=== PATIENT | male | born 1990 | race Caucasian/White ===

== ENCOUNTER 2016-12-03 09:38 | Emergency (ER) | payer BC, OTHER ==
[~2016-12-03] VITALS: Wt 63.6 kg
[~2016-12-03 09:38] MED LIST: IBUP-727 PO
[2016-12-03] MEDS ORDERED: KETOROLAC 30 MG INJ IV STA (09:51)
[2016-12-03] MEDS ORDERED: ONDANSETRON 4 MG INJ IV STA (09:51)
[2016-12-03] MEDS ORDERED: HYDROmorphONE 1 MG/ML SYG IV STA ×2 (10:09→11:23)
[2016-12-03 10:18] LABS: ADD SCAN DIFF NO
[2016-12-03 10:22] LABS: BASOPHIL # 0.1 10^3/ul (0.0-0.1); BASOPHILS % 0.3 % (0.0-2.0); EOSINOPHILS # 0.1 10^3/ul (0.0-0.5); EOSINOPHILS % 0.9 % (0.0-7.0); HEMATOCRIT 47.6 % (42.0-52.0); HEMOGLOBIN 15.2 g/dl (14.0-18.0); LYMPHOCYTES # 1.9 10^3/ul (0.8-2.9); LYMPHOCYTES % 12.4 % (15.0-51.0); MEAN CORPUSCULAR HEMOGLOBIN 25.6 pg (29.0-33.0); MEAN CORPUSCULAR HGB CONC 31.9 g/dl (32.0-37.0); MEAN CORPUSCULAR VOLUME 80.1 fl (82.0-101.0); MEAN PLATELET VOLUME 10.8 fl (7.4-10.4); MONOCYTE # 0.7 10^3/ul (0.3-0.9); MONOCYTES % 4.5 % (0.0-11.0); NEUTROPHIL # 12.6 10^3/ul (1.6-7.5); NEUTROPHILS % 81.6 % (39.0-77.0); PLATELET COUNT 290 10^3/UL (140-415); RED BLOOD COUNT 5.94 10^6/ul (4.70-6.10); RED CELL DISTRIBUTION WIDTH 12.3 % (11.5-14.5); WHITE BLOOD COUNT 15.5 10^3/ul (4.8-10.8)
[2016-12-03 10:38] LABS: ALBUMIN 4.7 g/dl (3.3-4.9)
[2016-12-03 10:39] LABS: POTASSIUM 4.3 mmol/L (3.5-5.1)
[2016-12-03 10:41] LABS: ALBUMIN/GLOBULIN RATIO 1.62; BILIRUBIN,INDIRECT 0.4 mg/dl (0-1.1); BILIRUBIN,TOTAL 0.4 mg/dl (0.2-1.3); CREATININE 0.93 mg/dl (0.61-1.24); TOTAL PROTEIN 7.6 g/dl (6.1-8.1)
[2016-12-03 10:42] LABS: CALCIUM 9.6 mg/dl (8.4-10.2)
[2016-12-03 11:41] VITALS: BP 128/92; PULSE 88; RESP 18
[2016-12-03 12:08] LABS: ADD UMIC YES; URINE BILIRUBIN (Dip) 2+ (NEGATIVE); URINE BLOOD (Dip) 3+ (NEGATIVE); URINE COLOR DK. RED (YELLOW); URINE GLUCOSE (Dip) NEGATIVE (NEGATIVE); URINE KETONES (Dip) 15 (NEGATIVE); URINE LEUKOCYTE ESTERASE (Dip) NEGATIVE (NEGATIVE); URINE NITRITE (Dip) POSITIVE (NEGATIVE); URINE TOTAL PROTEIN (Dip) 2+ (NEGATIVE); URINE UROBILINOGEN (Dip) 1.0 E.U./dL (0.1-1.0)
[2016-12-03 12:25] LABS: BACTERIA,URINE MANY; URINE RBCS >200 /HPF (0)
[2016-12-03 12:26] LABS: ICTOTEST NEGATIVE (NEGATIVE)
[2016-12-03] MEDS ORDERED: CIPR500T4 PO (13:22)
[2016-12-03] MEDS ORDERED: IBUP-1542 PO (13:22)
[2016-12-03] MEDS ORDERED: TRAM50TA2 PO (13:22)
--- NOTE | 2016-12-03 13:26 | ERA ---
ER Documentation Chief Complaint Date/Time DATE: 12/03/16 TIME: 943 Chief Complaint left flank pain for 1 week getting worse today. with urinary retention HPI 26-year-old male brought to the emergency department for his family for evaluation of left flank pain. Patient states that over the last week or so, he has had a severe, colicky left flank pain radiating towards his groin. He then began feeling as if he could not pass urine today. The pain became more severe. It rates from a 5-9 out of 10. Patient reports noted hematuria today. He had no fevers or chills or vomiting. He reports no diarrhea. ROS All systems reviewed and are negative except as per history of present illness. Medications Home Meds Active Scripts Ciprofloxacin Hcl* (Ciprofloxacin Hcl*) 500 Mg Tablet, 500 MG PO BID for 5 Days , TAB Prov:REX JOSUE 12/03/16 Ibuprofen* (Motrin*) 600 Mg Tab, 600 MG PO Q6, #30 TAB Prov:REX JOSUE 12/03/16 Tramadol HCl (Tramadol HCl) 50 Mg Tablet, 50 MG PO Q4 Y for PAIN, #20 TAB Prov:REX JOSUE 12/03/16 Discontinued Reported Medications Ibuprofen (Motrin) 600 Mg Tablet, 600 MG PO QID 11/20/11 Allergies Allergies: Coded Allergies: No Known Allergy (Unverified , 11/20/11) PMhx/Soc History of Surgery: No Anesthesia Reaction: No Hx Neurological Disorder: No Hx Respiratory Disorders: No Hx Cardiac Disorders: No Hx Psychiatric Problems: No Hx Miscellaneous Medical Probl: Yes (KIDNEY STONES ) Hx Alcohol Use: Yes Hx Substance Use: No Hx Tobacco Use: Yes (1 PPD) Smoking Status: Current every day smoker FmHx Noncontributory for chief complaint Physical Exam Vitals Vital Signs Date Time Temp Pulse Resp B/P Pulse Ox O2 Delivery O2 Flow Rate FiO2 12/03/16 11:41 88 18 128/92 99 Room Air 12/03/16 09:39 97.9 58 21 148/98 99 Physical Exam GENERAL: The patient is well developed and appropriate for usual state of health in no apparent distress HEENT: Pupils equal, round, and reactive to light. EOMI. There is no scleral icterus. NECK: C-spine is soft and supple, there is no meningismus. There is no cervical lymphadenopathy. LUNGS: Clear to auscultation bilaterally. There are no rales, wheezes or rhonchi. HEART: Regular rate and rhythm, no murmurs, clicks, rubs or gallops. ABDOMEN: Soft, non-tender, non-distended. There are bowel sounds in all four quadrants. No rebound or guarding. EXTREMITIES: There is no peripheral cyanosis or edema. No focal swelling or erythema. NEURO: The patient moves all four extremities with 5/5 strength. Cranial nerves II - XII are intact. Normal gait. Alert and oriented SKIN: There is no apparent rash or petechiae. HEME/LYMPHATIC: There is no evidence of excessive bruising or lymphedema. PSYCHIATRIC: The patient does not appear anxious or depressed. Result Diagram: 12/03/1650 12/03/1650 Results 24 hrs Laboratory Tests Test 12/03/16 09:50 12/03/16 11:19 White Blood Count 15.510^3/ul Red Blood Count 5.9410^6/ul Hemoglobin 15.2g/dl Hematocrit 47.6% Mean Corpuscular Volume 80.1fl Mean Corpuscular Hemoglobin 25.6pg Mean Corpuscular Hemoglobin Concent 31.9g/dl Red Cell Distribution Width 12.3% Platelet Count 96078^3/UL Mean Platelet Volume 10.8fl Neutrophils % 81.6% Lymphocytes % 12.4% Monocytes % 4.5% Eosinophils % 0.9% Basophils % 0.3% Nucleated Red Blood Cells % 0.0/100WBC Neutrophils # 12.610^3/ul Lymphocytes # 1.910^3/ul Monocytes # 0.710^3/ul Eosinophils # 0.110^3/ul Basophils # 0.110^3/ul Nucleated Red Blood Cells # 0.010^3/ul Sodium Level 140mmol/L Potassium Level 4.3mmol/L Chloride Level 101mmol/L Carbon Dioxide Level 27mmol/L Anion Gap 16 Blood Urea Nitrogen 15mg/dl Creatinine 0.93mg/dl Glucose Level 106mg/dl Calcium Level 9.6mg/dl Total Bilirubin 0.4mg/dl Direct Bilirubin 0.00mg/dl Indirect Bilirubin 0.4mg/dl Aspartate Amino Transf (AST/SGOT) 21IU/L Alanine Aminotransferase (ALT/SGPT) 31IU/L Alkaline Phosphatase 70IU/L Total Protein 7.6g/dl Albumin 4.7g/dl Globulin 2.90g/dl Albumin/Globulin Ratio 1.62 Lipase 129U/L Urine Color DK. RED Urine Clarity CLEAR Urine pH 5.5 Urine Specific Crucible >=1.030 Urine Ketones 15 Urine Nitrite POSITIVE Urine Bilirubin 2+ Urine Ictotest NEGATIVE Urine Urobilinogen 1.0 E.U./dL Urine Leukocyte Esterase NEGATIVE Urine Microscopic RBC >200/HPF Urine Microscopic WBC 10-25/HPF Urine Epithelial Cells FEW Urine Calcium Oxalate Crystals FEW Urine Bacteria MANY Urine Hemoglobin 3+ Urine Glucose NEGATIVE% Urine Total Protein 2+ Current Medications Medications (Trade) Dose Ordered Sig/Michael Route PRN Reason Start Time Stop Time Status Last Admin Dose Admin Ketorolac Tromethamine (Toradol) 30 mg ONCE STAT IV 12/03/16 09:51 12/03/16 09:52 DC 12/03/16 09:59 Ondansetron HCl (Zofran Inj) 4 mg ONCE STAT IV 12/03/16 09:51 12/03/16 09:52 DC 12/03/16 09:58 Hydromorphone HCl (Dilaudid) 1 mg ONCE STAT IV 12/03/16 10:09 12/03/16 10:10 DC 12/03/16 10:13 Hydromorphone HCl (Dilaudid) 0.5 mg ONCE STAT IV 12/03/16 11:23 12/03/16 11:24 DC 12/03/16 11:41 Procedures/MDM Patient was taken to a room, seen and evaluated. Comfort measures were initiated. Diagnostic tests were ordered and reviewed. RADIOLOGY: reviewed with the radiologist REEVALUATION: Patient's pain was able to be controlled. Patient was then noted to feel as if he passed the kidney stone and then had complete resolution of his discomfort. Serial examinations of his abdomen remained benign prior to discharge. MEDICAL DECISION MAKIN-year-old male with a history of kidney stones presents the emergency department with left flank pain. Differential diagnosis entertained was broad and potential high acuity but ultimately his evaluation seems to be reflective of a repeat kidney stone. Ultrasound also demonstrates kidney stone disease with mild hydro-. He has evidence of a mild secondary infection, but does not appear to be septic. At this point, given the resolution of his symptoms and is otherwise lack of comorbid conditions, patient appears to be appropriate for outpatient care. Departure Diagnosis: Primary Impression: Kidney stone Additional Impression: Urinary tract infection Condition: Stable Patient Instructions: Kidney Stone, Passed Additional Instructions: Do NOT drive while taking the medication. Return for any problems or concerns REX JOSUE December 03, 2016 13:26
--- NOTE | 2016-12-03 13:28 | RADRPT ---
PROCEDURE: Complete abdominal ultrasound. CLINICAL INDICATION: Flank pain, abdominal pain TECHNIQUE: Gordillo scale and color doppler ultrasound images of the abdomen. COMPARISON: None FINDINGS: Pancreas: Visualized portions appear of normal echogenicity, no focal lesions. Liver: Morphology: Normal in size and contour. Echogenicity: Normal. Focal lesions: None. Main portal vein: Patent with hepatopetal flow. Biliary System: Normal appearing gallbladder wall. No gallstones seen. No intrahepatic biliary dilatation. Common bile duct diameter: 2.8 mm Kidneys: Right length: 10.4 cm. Right renal cortical thickness is preserved. Left length: 11.0 cm. Left renal cortical thickness is preserved. Normal echogenicity. Mild left-sided hydronephrosis. 1.6 cm right renal calculus. Possible 0.7 cm left renal calculus. No focal renal lesions. Spleen: Normal in size, no focal lesions. No free fluid identified. Normal caliber of the partially visualized aorta. IMPRESSION: 1.6 cm nonobstructive right renal calculus. Possible 0.7 cm left renal calculus. Mild left-sided hydronephrosis. CT scan of the abdomen and pelvis recommended for further evaluation. RPTAT: AADD .Milo Crouch MD, MD Date Time Electronically viewed and signed by .Milo Crouch MD, on 12/03/2016 13:28 .B/
== END 2016-12-03 13:42 | disposition home or self-care (01) ==
LOC: E/R 09:38
DX: N20.0 Calculus of kidney (principal); N39.0 Urinary tract infection, site not specified; F17.210 Nicotine dependence, cigarettes, uncomplicated
CPT/HCPCS: 76700; 80053; 81001; 83690; 85025; J1170; J1885; J2405; 36415; 96374; 96375; 96376

== ENCOUNTER → 2016-12-21 | Outpatient (CLI) | payer BC ==
[~2016-12-21] MED LIST changes: +BARIUM SULFATE 135 ML (E-Z HD) PO ONE; +CIPR500T4 PO; +IBUP-1542 PO; -IBUP-727 PO; +TRAM50TA2 PO
--- NOTE | 2016-12-21 18:15 | RADRPT ---
PROCEDURE: XR Abdomen. CLINICAL INDICATION: History of renal calculi. TECHNIQUE: AP supine abdomen x-ray. COMPARISON: Ultrasound of the abdomen and pelvis dated 12/03/2016. FINDINGS: The bowel gas pattern is normal. There is no evidence of obstruction. The bilateral renal calculi seen on ultrasound are not visualized with plain radiograph. There are no calcifications overlying the urinary tracts. The osseus structures are unremarkable. IMPRESSION: 1. Unremarkable abdomen radiograph. 2. The calculi seen on ultrasound are not visualized with plain radiograph. RPTAT: QQ .Emile Cantu MD, MD Date Time Electronically viewed and signed by .Emile Cantu MD, on 12/21/2016 18:15 .R/
== END | disposition home or self-care (01) ==
LOC: RAD 09:44
PROVIDERS: ATTEND Urology
DX: N20.0 Calculus of kidney (principal)
CPT/HCPCS: 74000

== ENCOUNTER → 2017-01-03 | Outpatient (CLI) | payer BC ==
[~2017-01-03] MED LIST changes: -BARIUM SULFATE 135 ML (E-Z HD) PO ONE
--- NOTE | 2017-01-03 13:17 | RADRPT ---
PROCEDURE: CT abdomen and pelvis without contrast. CLINICAL INDICATION: Urolithiasis TECHNIQUE: CT scan of the abdomen and pelvis without contrast was performed and is reconstructed a t 2.5 mm contiguous axial intervals from the dome of the diaphragm to the inferior pubic rami.. The patient was scanned without intravenous contrast. Sagittal and coronal reformatted images were obt ained from the axial source images. The calculated radiation dose measures 271 mGy centimeters. The CTDI measures 5 mGy. COMPARISON: None. FINDINGS: The lung bases are clear of any infiltrate or nodule. No effusion is seen. The liver is of normal size, contour and attenuation with no mass or ductal dilatation. No gallston es are visualized. No splenic, adrenal or pancreatic abnormalities present. Kidneys are of normal size and contour. No hydronephrosis or masses seen. There is a nonobstructin g discoid calcification in the midpole of the right kidney measuring 13 mm in diameter. Ureters are of normal course and caliber with no stone. No bladder mass is present. There is a 6 mm calculus i n the left urinary bladder. The prostate and seminal vesicles appear normal. There is no aneurysm. No adenopathy is present. No bowel mass or obstruction is present. The appendix is normal. No phlegmon, ascites or pneumop eritoneum is visualized. The osseous structures are intact. IMPRESSION: 13 mm nonobstructing right renal calculus. 6 mm bladder stone. .Angel Preston MD, MD Date Time Electronically viewed and signed by .Angel Preston MD, MD on 01/03/2017 13:17 .A/
== END | disposition home or self-care (01) ==
LOC: C/S 12:10
PROVIDERS: ATTEND Urology
DX: N20.0 Calculus of kidney (principal)
CPT/HCPCS: 74176